=== PATIENT | male | born 1965 | race African-American/Black ===

== ENCOUNTER 2016-10-27 22:33 | Inpatient (IN) | payer SELFPAY ==
[~2016-10-27] VITALS: Ht 182.9 cm; Wt 99.8 kg
[2016-10-27] MEDS ORDERED: VERAPAMIL SR 180 MG TABLET.ER. PO ONE (23:45)
[2016-10-27] MEDS ORDERED: LISINOPRIL 10 MG TABLET PO ONE (23:45)
[2016-10-28] VITALS (7 sets, daily range): BP systolic 137–203; BP diastolic 73–132
[2016-10-28 02:41] LABS: BASO # 0.1 x10^3/uL (0.0-0.2); BASO % 1 % (0-3); EOS % 2 % (0-3); HEMATOCRIT 46.4 % (39.0-53.0); LYMPH # 2.9 x10^3/uL (1.0-4.8); LYMPH % 35 % (24-48); MEAN CORPUSCULAR HEMOGLOBIN 28 pg (25-35); MEAN CORPUSCULAR HGB CONC 32 g/dL (31-37); MEAN CORPUSCULAR VOLUME 88 fL (79-100); MONO % 7 % (0-9); NEUT % 56 % (31-73); PLATELET COUNT 261 x10^3/uL (140-400); RED BLOOD COUNT 5.29 x10^6/uL (4.30-5.70); RED CELL DISTRIBUTION WIDTH 15.2 % (11.5-14.5); WHITE BLOOD COUNT 8.3 x10^3/uL (4.0-11.0)
[2016-10-28] MEDS ORDERED: MORPHINE SULFATE 2 MG/ML DISP.SYRIN. IV PRN (02:45)
[2016-10-28] MEDS ORDERED: ACETAMINOPHEN 325 MG TABLET. PO PRN ×2 (02:45→10:30)
[2016-10-28] MEDS ORDERED: ONDANSETRON PF 4 MG/2 ML VIAL. IV PRN ×2 (02:45→10:30)
[2016-10-28 02:59] LABS: CALCIUM 9.3 mg/dL (8.5-10.1); CREATININE 1.1 mg/dL (0.7-1.3); GFR 85.1; POTASSIUM 3.7 mmol/L (3.5-5.1)
[2016-10-28] MEDS ORDERED: METOPROLOL TARTRATE 5 MG/5 ML VIAL. IVP ONE ×3 (03:00)
[2016-10-28 03:05] LABS: ALBUMIN 3.9 g/dL (3.4-5.0); ALBUMIN/GLOBULIN RATIO 1.1 (1.0-1.7); TOTAL BILIRUBIN 0.3 mg/dL (0.2-1.0); TOTAL PROTEIN 7.3 g/dL (6.4-8.2)
[2016-10-28] MEDS ORDERED: cloNIDine HCL 0.1 MG TABLET PO ONE (05:30)
--- NOTE | 2016-10-28 05:46 | PHYS DOC ---
Past Medical History Past Medical History: Cancer, Hypertension Additional Past Medical Histor: PROSTATE CA Past Surgical History: Other Additional Past Surgical Histo: PROSTATE Alcohol Use: Rarely Drug Use: None Adult General Chief Complaint Chief Complaint: HYPERTENSION HPI HPI Patient is a 50 year old [f__sex] who presents with [] Review of Systems Review of Systems Constitutional: Denies fever or chills [] Eyes: Denies change in visual acuity, redness, or eye pain [] HENT: Denies nasal congestion or sore throat [] Respiratory: Denies cough or shortness of breath [] Cardiovascular: No additional information not addressed in HPI [] GI: Denies abdominal pain, nausea, vomiting, bloody stools or diarrhea [] : Denies dysuria or hematuria [] Musculoskeletal: Denies back pain or joint pain [] Integument: Denies rash or skin lesions [] Neurologic: Denies headache, focal weakness or sensory changes [] Endocrine: Denies polyuria or polydipsia [] Current Medications Current Medications Current Medications Medications (Trade) Dose Ordered Sig/Fabio Start Time Stop Time Status Last Admin Dose Admin Lisinopril (Prinivil) 10 mg 1X ONCE 10/27/16 23:45 10/27/16 23:46 DC 10/27/16 23:39 10 MG Verapamil HCl (Calan Sr) 180 mg ONCE ONCE 10/27/16 23:45 10/27/16 23:46 DC 10/27/16 23:40 180 MG Allergies Allergies Allergies Coded Allergies Type Severity Reaction Last Updated Verified No Known Drug Allergies 10/27/16 No Physical Exam Physical Exam Constitutional: Well developed, well nourished, no acute distress, non-toxic appearance. [] HENT: Normocephalic, atraumatic, bilateral external ears normal, oropharynx moist, no oral exudates, nose normal. [] Eyes: PERRLA, EOMI, conjunctiva normal, no discharge. [] Neck: Normal range of motion, no tenderness, supple, no stridor. [] Cardiovascular:Heart rate regular rhythm, no murmur [] Lungs & Thorax: Bilateral breath sounds clear to auscultation [] Abdomen: Bowel sounds normal, soft, no tenderness, no masses, no pulsatile masses. [] Skin: Warm, dry, no erythema, no rash. [] Back: No tenderness, no CVA tenderness. [] Extremities: No tenderness, no cyanosis, no clubbing, ROM intact, no edema. [] Neurologic: Alert and oriented X 3, normal motor function, normal sensory function, no focal deficits noted. [] Psychologic: Affect normal, judgement normal, mood normal. [] Current Patient Data Vital Signs Vital Signs Date Time Temp Pulse Resp B/P (MAP) Pulse Ox O2 Delivery O2 Flow Rate FiO2 10/27/16 23:40 71 201/119 10/27/16 23:22 98.2 20 95 Room Air 98.2 Lab Values Laboratory Tests Test 10/28/16 00:01 White Blood Count 8.3 x10^3/uL (4.0-11.0) Red Blood Count 5.29 x10^6/uL (4.30-5.70) Hemoglobin 15.0 g/dL (13.0-17.5) Hematocrit 46.4 % (39.0-53.0) Mean Corpuscular Volume 88 fL (79-100) Mean Corpuscular Hemoglobin 28 pg (25-35) Mean Corpuscular Hemoglobin Concent 32 g/dL (31-37) Red Cell Distribution Width 15.2 % (11.5-14.5) H Platelet Count 261 x10^3/uL (140-400) Neutrophils (%) (Auto) 56 % (31-73) Lymphocytes (%) (Auto) 35 % (24-48) Monocytes (%) (Auto) 7 % (0-9) Eosinophils (%) (Auto) 2 % (0-3) Basophils (%) (Auto) 1 % (0-3) Neutrophils # (Auto) 4.7 x10^3uL (1.8-7.7) Lymphocytes # (Auto) 2.9 x10^3/uL (1.0-4.8) Monocytes # (Auto) 0.6 x10^3/uL (0.0-1.1) Eosinophils # (Auto) 0.1 x10^3/uL (0.0-0.7) Basophils # (Auto) 0.1 x10^3/uL (0.0-0.2) Sodium Level 142 mmol/L (136-145) Potassium Level 3.7 mmol/L (3.5-5.1) Chloride Level 103 mmol/L (98-107) Carbon Dioxide Level 32 mmol/L (21-32) Anion Gap 7 (6-14) Blood Urea Nitrogen 10 mg/dL (8-26) Creatinine 1.1 mg/dL (0.7-1.3) Estimated GFR (Cockcroft-Gault) 85.1 BUN/Creatinine Ratio 9 (6-20) Glucose Level 79 mg/dL (70-99) Calcium Level 9.3 mg/dL (8.5-10.1) Total Bilirubin 0.3 mg/dL (0.2-1.0) Aspartate Amino Transferase (AST) 20 U/L (15-37) Alanine Aminotransferase (ALT) 36 U/L (16-63) Alkaline Phosphatase 85 U/L (46-116) Troponin I Quantitative < 0.017 ng/mL (0.000-0.055) QR-Rrt-P-Type Natriuretic Peptide 72 pg/mL (0-124) Total Protein 7.3 g/dL (6.4-8.2) Albumin 3.9 g/dL (3.4-5.0) Albumin/Globulin Ratio 1.1 (1.0-1.7) Laboratory Tests 10/28/16 00:01 Laboratory Tests 10/28/16 00:01 EKG EKG [] Radiology/Procedures Radiology/Procedures [] Course & Med Decision Making Course & Med Decision Making Pertinent Labs and Imaging studies reviewed. (See chart for details) [] Dragon Disclaimer Dragon Disclaimer This electronic medical record was generated, in whole or in part, using a voice recognition dictation system. Departure Departure Impression: Primary Impression: Severe hypertension Additional Impression: Headache Disposition: ADMITTED INPATIENT Admitting Physician: Other (reusch) Condition: STABLE Referrals: NO PCP (PCP) Problem Qualifiers ANYI FOOTE MD Oct 28, 2016 05:46
--- NOTE | 2016-10-28 08:06 | RAD ---
EXAM: Chest one view. HISTORY: Hypertension. COMPARISON: 05/25/2007. FINDINGS: A frontal view of the chest is obtained. There are no confluent infiltrates. There is no pneumothorax or pleural effusion. The heart is not enlarged. IMPRESSION: 1. No confluent infiltrates.
--- NOTE | 2016-10-28 10:10 | PDOC2 ---
ARNALDO MAE GUNNER MATE 10/28/16 1010: CARDIAC CONSULT DATE OF CONSULT Date of Consult DATE: 10/28/16 TIME: 10:09 REASON FOR CONSULT Reason for Consult: HTN REFERRING PHYSICIAN Referring Physician: Dr. Alejandra Saul SOURCE Source: Chart review, Patient HISTORY OF PRESENT ILLNESS HISTORY OF PRESENT ILLNESS 50 year old male with history of HTN who stopped meds about 1.5 years ago as he did not think they were working and had financial issues. BP was ~ 160 at home and has increased gradually in the last 2 weeks. Presented to ER with headache and SBP > 200. Given multiple oral meds with improvement. Has been started on ACEI and diuretic. No EKG for review. Reason for Visit: HTN PAST MEDICAL HISTORY Cardiovascular: HTN Renal/: Prostate Ca. (with previous surgery) PAST SURGICAL HISTORY Past Surgical History seem PM FAMILY HISTORY Family History: Hypertension SOCIAL HISTORY Smoke: <1 pack per day ALCOHOL: rare Drugs: Other (quit THC years ago) CURRENT MEDICATIONS CURRENT MEDICATIONS Current Medications Medications (Trade) Dose Ordered Sig/Fabio Route PRN Reason Start Time Stop Time Status Last Admin Dose Admin Verapamil HCl (Calan Sr) 180 mg ONCE ONCE PO 10/27/16 23:45 10/27/16 23:46 DC 10/27/16 23:40 Lisinopril (Prinivil) 10 mg 1X ONCE PO 10/27/16 23:45 10/27/16 23:46 DC 10/27/16 23:39 Metoprolol Tartrate (Lopressor) 5 mg 1X ONCE IVP 10/28/16 03:00 10/28/16 03:01 DC 10/28/16 02:53 Metoprolol Tartrate (Lopressor) 5 mg 1X ONCE IVP 10/28/16 03:00 10/28/16 03:01 DC 10/28/16 03:05 Metoprolol Tartrate (Lopressor) 5 mg 1X ONCE IVP 10/28/16 03:00 10/28/16 03:01 DC 10/28/16 03:25 Clonidine HCl (Catapres) 0.1 mg 1X ONCE PO 10/28/16 05:30 10/28/16 05:31 DC 10/28/16 05:08 ALLERGIES ALLERGIES: Coded Allergies: No Known Drug Allergies (Unverified , 10/27/16) ROS Review of System 14 point review with pertinent positives in HPI PHYSICAL EXAM General: Alert, Oriented X3, Cooperative, No acute distress HEENT: Atraumatic, PERRLA Lungs: Clear to auscultation Heart: Regular rate, Normal S1, Normal S2, No murmurs Abdomen: Normal bowel sounds, Soft Extremities: No edema, Normal pulses Skin: No rashes Neuro: Normal speech Psych/Mental Status: Mental status NL, Mood NL MUSCULOSKELETAL: No deformity VITALS VITALS Vital Signs Date Time Temp Pulse Resp B/P (MAP) Pulse Ox O2 Delivery O2 Flow Rate FiO2 10/28/16 08:00 Room Air 10/28/16 07:46 97.3 58 18 137/73 (94) 94 97.3 LABS Lab: Laboratory Tests Test 10/28/16 00:01 White Blood Count 8.3 x10^3/uL (4.0-11.0) Red Blood Count 5.29 x10^6/uL (4.30-5.70) Hemoglobin 15.0 g/dL (13.0-17.5) Hematocrit 46.4 % (39.0-53.0) Mean Corpuscular Volume 88 fL (79-100) Mean Corpuscular Hemoglobin 28 pg (25-35) Mean Corpuscular Hemoglobin Concent 32 g/dL (31-37) Red Cell Distribution Width 15.2 % (11.5-14.5) Platelet Count 261 x10^3/uL (140-400) Neutrophils (%) (Auto) 56 % (31-73) Lymphocytes (%) (Auto) 35 % (24-48) Monocytes (%) (Auto) 7 % (0-9) Eosinophils (%) (Auto) 2 % (0-3) Basophils (%) (Auto) 1 % (0-3) Neutrophils # (Auto) 4.7 x10^3uL (1.8-7.7) Lymphocytes # (Auto) 2.9 x10^3/uL (1.0-4.8) Monocytes # (Auto) 0.6 x10^3/uL (0.0-1.1) Eosinophils # (Auto) 0.1 x10^3/uL (0.0-0.7) Basophils # (Auto) 0.1 x10^3/uL (0.0-0.2) Sodium Level 142 mmol/L (136-145) Potassium Level 3.7 mmol/L (3.5-5.1) Chloride Level 103 mmol/L (98-107) Carbon Dioxide Level 32 mmol/L (21-32) Anion Gap 7 (6-14) Blood Urea Nitrogen 10 mg/dL (8-26) Creatinine 1.1 mg/dL (0.7-1.3) Estimated GFR (Cockcroft-Gault) 85.1 BUN/Creatinine Ratio 9 (6-20) Glucose Level 79 mg/dL (70-99) Calcium Level 9.3 mg/dL (8.5-10.1) Total Bilirubin 0.3 mg/dL (0.2-1.0) Aspartate Amino Transf (AST/SGOT) 20 U/L (15-37) Alanine Aminotransferase (ALT/SGPT) 36 U/L (16-63) Alkaline Phosphatase 85 U/L (46-116) Troponin I Quantitative < 0.017 ng/mL (0.000-0.055) VL-Ejg-Z-Type Natriuretic Peptide 72 pg/mL (0-124) Total Protein 7.3 g/dL (6.4-8.2) Albumin 3.9 g/dL (3.4-5.0) Albumin/Globulin Ratio 1.1 (1.0-1.7) IMAGES IMAGES CXR - no acute process EKG EKG none for review ASSESSMENT/PLAN ASSESSMENT/PLAN 1. malignant HTN stopped meds 1.5 yrs ago due to financial issues has been restarted on oral meds pt concerned about meds - add CCB echo to evaluate for DD consult to SS for referral to reduced fee clinic 2. tobacco abuse smoking cessation advised Problems: BRANDON OROPEZA MD 10/28/16 2008: CARDIAC CONSULT ALLERGIES ALLERGIES: Coded Allergies: No Known Drug Allergies (Unverified , 10/27/16) ASSESSMENT/PLAN ASSESSMENT/PLAN Pt. seen and examined. Agree with above PREMIUM REPRESENTATIVE note. 50 y.o male with uncontrolled HTN. Doing better after BP control. Normal echo and cardiac exam. Ok to DC tomorrow if BP better controlled. Problems: ARNALDO MAE APRN Oct 28, 2016 10:10 BRANDON OROPEZA MD Oct 28, 2016 20:08
[2016-10-28] MEDS ORDERED: HYDROcodone/APAP 5/325MG 1 TAB TABLET PO PRN (10:30)
[2016-10-28] MEDS ORDERED: ALBUTEROL SULFATE 2.5 MG/3 ML NEBU. NEB PRN (10:30)
--- NOTE | 2016-10-28 10:36 | PDOC1 ---
History and Physical Current Problem List Problem List Problems Medical Problems: (1) Headache Status: Acute (2) Severe hypertension Status: Acute Current Medications Current Medications Current Medications Medications (Trade) Dose Ordered Sig/Fabio Start Time Stop Time Status Last Admin Dose Admin Acetaminophen (Tylenol) 325 mg PRN Q6HRS PRN 10/28/16 10:30 Acetaminophen/ Hydrocodone Bitart (Lortab 5/325) 1 tab PRN Q6HRS PRN 10/28/16 10:30 Albuterol Sulfate (Ventolin Neb Soln) 2.5 mg PRN Q4HRS PRN 10/28/16 10:30 Clonidine HCl (Catapres) 0.1 mg 1X ONCE 10/28/16 05:30 10/28/16 05:31 DC 10/28/16 05:08 0.1 MG Hydralazine HCl (Apresoline) 10 mg PRN Q4HRS PRN 10/28/16 10:30 Hydrochlorothiazide (Hydrodiuril) 25 mg DAILY 10/28/16 10:45 Lisinopril (Prinivil) 10 mg 1X ONCE 10/27/16 23:45 10/27/16 23:46 DC 10/27/16 23:39 10 MG Metoprolol Tartrate (Lopressor) 5 mg 1X ONCE 10/28/16 03:00 10/28/16 03:01 DC 10/28/16 03:25 5 MG Morphine Sulfate 2 mg PRN Q2HR PRN 10/28/16 02:45 10/29/16 02:44 Ondansetron HCl (Zofran) 4 mg PRN Q8HRS PRN 10/28/16 10:30 Verapamil HCl (Calan Sr) 180 mg ONCE ONCE 10/27/16 23:45 10/27/16 23:46 DC 10/27/16 23:40 180 MG Allergies Allergies Allergies Coded Allergies Type Severity Reaction Last Updated Verified No Known Drug Allergies 10/27/16 No ROS Review of System CONSTITUTIONAL: No fever or chills EYES: No recent changes SKIN: No rash or itching CARDIOVASCULAR: No chest pain, syncope, palpitations, or edema RESPIRATORY: No SOB or cough GASTROINTESTINAL: No nausea, vomiting or abdominal pain NEUROLOGICAL: No headaches or weakness ENDOCRINE: No cold or heat intolerance GENITOURINARY: No urgency or frequency of urination MUSCULOSKELETAL: No back pain or joint pain LYMPHATICS: No enlarged lymph nodes PSYCHIATRIC: No anxiety or depression Physical Exam Physical Exam GEN.: No apparent distress. Alert and oriented. HEENT: Head is normocephalic, atraumatic NECK: Supple. LUNGS: Clear to auscultation. HEART: RRR, S1, S2 present. Peripheral pulses intact ABDOMEN: Soft, nontender. Positive bowel sounds. EXTREMITIES: Without any cyanosis. NEUROLOGIC: Normal speech, normal tone PSYCHIATRIC: Normal affect, normal mood. SKIN: No ulcerations Vitals Vitals Vital Signs Date Time Temp Pulse Resp B/P (MAP) Pulse Ox O2 Delivery O2 Flow Rate FiO2 10/28/16 08:00 Room Air 10/28/16 07:46 97.3 58 18 137/73 (94) 94 97.3 Labs Labs Laboratory Tests Test 10/28/16 00:01 White Blood Count 8.3 x10^3/uL (4.0-11.0) Red Blood Count 5.29 x10^6/uL (4.30-5.70) Hemoglobin 15.0 g/dL (13.0-17.5) Hematocrit 46.4 % (39.0-53.0) Mean Corpuscular Volume 88 fL (79-100) Mean Corpuscular Hemoglobin 28 pg (25-35) Mean Corpuscular Hemoglobin Concent 32 g/dL (31-37) Red Cell Distribution Width 15.2 % (11.5-14.5) Platelet Count 261 x10^3/uL (140-400) Neutrophils (%) (Auto) 56 % (31-73) Lymphocytes (%) (Auto) 35 % (24-48) Monocytes (%) (Auto) 7 % (0-9) Eosinophils (%) (Auto) 2 % (0-3) Basophils (%) (Auto) 1 % (0-3) Neutrophils # (Auto) 4.7 x10^3uL (1.8-7.7) Lymphocytes # (Auto) 2.9 x10^3/uL (1.0-4.8) Monocytes # (Auto) 0.6 x10^3/uL (0.0-1.1) Eosinophils # (Auto) 0.1 x10^3/uL (0.0-0.7) Basophils # (Auto) 0.1 x10^3/uL (0.0-0.2) Sodium Level 142 mmol/L (136-145) Potassium Level 3.7 mmol/L (3.5-5.1) Chloride Level 103 mmol/L (98-107) Carbon Dioxide Level 32 mmol/L (21-32) Anion Gap 7 (6-14) Blood Urea Nitrogen 10 mg/dL (8-26) Creatinine 1.1 mg/dL (0.7-1.3) Estimated GFR (Cockcroft-Gault) 85.1 BUN/Creatinine Ratio 9 (6-20) Glucose Level 79 mg/dL (70-99) Calcium Level 9.3 mg/dL (8.5-10.1) Total Bilirubin 0.3 mg/dL (0.2-1.0) Aspartate Amino Transf (AST/SGOT) 20 U/L (15-37) Alanine Aminotransferase (ALT/SGPT) 36 U/L (16-63) Alkaline Phosphatase 85 U/L (46-116) Troponin I Quantitative < 0.017 ng/mL (0.000-0.055) QK-Ivh-T-Type Natriuretic Peptide 72 pg/mL (0-124) Total Protein 7.3 g/dL (6.4-8.2) Albumin 3.9 g/dL (3.4-5.0) Albumin/Globulin Ratio 1.1 (1.0-1.7) Laboratory Tests Test 10/28/16 00:01 White Blood Count 8.3 x10^3/uL (4.0-11.0) Red Blood Count 5.29 x10^6/uL (4.30-5.70) Hemoglobin 15.0 g/dL (13.0-17.5) Hematocrit 46.4 % (39.0-53.0) Mean Corpuscular Volume 88 fL (79-100) Mean Corpuscular Hemoglobin 28 pg (25-35) Mean Corpuscular Hemoglobin Concent 32 g/dL (31-37) Red Cell Distribution Width 15.2 % (11.5-14.5) Platelet Count 261 x10^3/uL (140-400) Neutrophils (%) (Auto) 56 % (31-73) Lymphocytes (%) (Auto) 35 % (24-48) Monocytes (%) (Auto) 7 % (0-9) Eosinophils (%) (Auto) 2 % (0-3) Basophils (%) (Auto) 1 % (0-3) Neutrophils # (Auto) 4.7 x10^3uL (1.8-7.7) Lymphocytes # (Auto) 2.9 x10^3/uL (1.0-4.8) Monocytes # (Auto) 0.6 x10^3/uL (0.0-1.1) Eosinophils # (Auto) 0.1 x10^3/uL (0.0-0.7) Basophils # (Auto) 0.1 x10^3/uL (0.0-0.2) Sodium Level 142 mmol/L (136-145) Potassium Level 3.7 mmol/L (3.5-5.1) Chloride Level 103 mmol/L (98-107) Carbon Dioxide Level 32 mmol/L (21-32) Anion Gap 7 (6-14) Blood Urea Nitrogen 10 mg/dL (8-26) Creatinine 1.1 mg/dL (0.7-1.3) Estimated GFR (Cockcroft-Gault) 85.1 BUN/Creatinine Ratio 9 (6-20) Glucose Level 79 mg/dL (70-99) Calcium Level 9.3 mg/dL (8.5-10.1) Total Bilirubin 0.3 mg/dL (0.2-1.0) Aspartate Amino Transf (AST/SGOT) 20 U/L (15-37) Alanine Aminotransferase (ALT/SGPT) 36 U/L (16-63) Alkaline Phosphatase 85 U/L (46-116) Troponin I Quantitative < 0.017 ng/mL (0.000-0.055) XZ-Anr-S-Type Natriuretic Peptide 72 pg/mL (0-124) Total Protein 7.3 g/dL (6.4-8.2) Albumin 3.9 g/dL (3.4-5.0) Albumin/Globulin Ratio 1.1 (1.0-1.7) VTE Prophylaxis Ordered VTE Prophylaxis Devices: No VTE Pharmacological Prophylaxi: No VIKTORIA MILLER MD Oct 28, 2016 10:36
[2016-10-28] MEDS: LISINOPRIL 20 MG TABLET PO SCH (11:27)
[2016-10-28] MEDS: hydroCHLOROthiazide 25 MG TABLET PO SCH (11:27)
[2016-10-28] MEDS: amLODIPine BESYLATE 10 MG TABLET PO SCH (11:27)
--- NOTE | 2016-10-28 16:09 | CARD ---
APPROVED REPORT EXAM: Two-dimensional and M-mode echocardiogram with Doppler and color Doppler. Other Information Quality : GoodHR: 63bpm Rhythm : NSR INDICATION Hypertension/HCVD Neck tightness 2D DIMENSIONS RVDd2.8 (2.9-3.5cm)IVSd1.5 (0.7-1.1cm) Aortic Root(2D)3.5 (2.0-3.7cm)LVDd4.3 (3.9-5.9cm) PWd1.4 (0.7-1.1cm) Aortic Valve AoV Peak Olvin.109.4cm/sAoV VTI24.6cm AO Peak GR.4.8mmHgLVOT Peak Olvin.108.4cm/s AO Mean GR.3mmHg Mitral Valve MV E Bvhyedhr91.3cm/sMV E Peak Gr.3mmHg MV DECEL [id number] A Sxdyudxz60.8cm/s MV E Mean Gr.1mmHgE/A Ratio1.9 MV A [id number] Pulmonary Valve PV Peak Ktzryznc87.3cm/s Tricuspid Valve TR P. Nceqwpea400ea/sTR Peak Gr.25mmHg Pulmonary Vein S1 Nlkeyfpx99.7cm/sD2 Xsjhnbfr15.2cm/s PVa [id number] LEFT VENTRICLE The left ventricle is normal size. There is mild concentric left ventricular hypertrophy. The left ve ntricular systolic function is normal and the ejection fraction is within normal range. The Ejection Fraction is 55-60%. There is normal LV segmental wall motion. The left ventricular diastolic function and filling is normal for age. RIGHT VENTRICLE The right ventricle is normal size. The right ventricular systolic function is normal. ATRIA The left atrium size is normal. The right atrium size is normal. The interatrial septum is intact wit h no evidence for an atrial septal defect or patent foramen ovale as noted on 2-D or Doppler imaging. AORTIC VALVE The aortic valve is mildly thickened. The aortic valve is trileaflet. Doppler and Color Flow revealed no significant aortic regurgitation. There is no significant aortic valvular stenosis. MITRAL VALVE The mitral valve leaflets are mildly thickened. There is no evidence of mitral valve prolapse. There is no mitral valve stenosis. Doppler and Color Flow revealed trace mitral regurgitation. TRICUSPID VALVE Doppler and Color Flow revealed trace tricuspid regurgitation. The pulmonary artery systolic pressure is estimated at 28 mmHg. There is no pulmonary hypertension. PULMONIC VALVE Doppler and Color Flow revealed no pulmonic valvular regurgitation. There is no pulmonic valvular tigist nosis. GREAT VESSELS The aortic root is normal in size. The ascending aorta is mildly dilated. The IVC is normal in size a nd collapses >50% with inspiration. PERICARDIAL EFFUSION There is no evidence of significant pericardial effusion. Critical Notification Critical Value: No <Conclusion> There is mild concentric left ventricular hypertrophy. The left ventricular systolic function is normal and the ejection fraction is within normal range. The Ejection Fraction is 55-60%. There is normal LV segmental wall motion.
[2016-10-28] MEDS: hydrALAZINE 20 MG/ML VIAL. IVP PRN ×2 (16:21→21:24)
--- NOTE | 2016-10-28 19:15 | HP ---
ADMIT DATE: 10/28/2016 CHIEF COMPLAINT: Headaches. HISTORY OF PRESENT ILLNESS: A 50-year-old male patient with prior history of hypertension, not taking medication about nearly 2 years due to financial issues. The patient was on hydrochlorothiazide in the past; however, due to financial issues, he could not take any medication so far. The patient presented to the hospital with headache, which is intractable in nature. Denies any chest pain, palpitations or blurring vision. At the time of his arrival to the ER, his blood pressure systolic more than 201/119. I was requiring several IV medications to control his blood pressures such as clonidine, metoprolol, lisinopril and verapamil. This morning, his blood pressure is still high. I was requiring other oral medications such as hydrochlorothiazide and lisinopril. PAST MEDICAL HISTORY: Hypertension and prostate cancer. PAST SURGICAL HISTORY: None. FAMILY HISTORY: Hypertension. SOCIAL HISTORY: Smoking less than 1 pack a day. Occasionally takes alcohol. ALLERGIES: NKDA. REVIEW OF SYSTEMS: Please see my electronic H and P. PHYSICAL EXAMINATION: Please see my electronic H and P. MEDICATIONS: Reviewed and reconciled. Please see MRAD. LABORATORY DATA: CBC within normal limits. Chemistry within normal limits. IMAGING STUDIES: 1. EKG not able to review. 2. Echocardiogram pending. ASSESSMENT AND PLAN: 1. Hypertensive urgency, present on admission. 2. Nicotine use. PLAN: 1. The patient has been placed on several IV medications. Currently, we are changing to oral. He has been placed on hydrochlorothiazide, lisinopril and amlodipine. I will continue to monitor his response. He had a stress echocardiogram today. Cardiology has been consulted. Two sets of troponins have been ordered. 2. herbarium worker consult for possible financial help. 3. CBC, BMP in a.m. VIKTORIA MILLER MD DR: JASPREET/josie JOB#: [id number] / [id number]
[2016-10-29 03:37] VITALS: BP 148/104
[2016-10-29 03:51] LABS: BASO % 1 % (0-3); EOS % 1 % (0-3); HEMATOCRIT 46.2 % (39.0-53.0); HEMOGLOBIN 15.3 g/dL (13.0-17.5); LYMPH # 2.5 x10^3/uL (1.0-4.8); LYMPH % 30 % (24-48); MEAN CORPUSCULAR HEMOGLOBIN 28 pg (25-35); MEAN CORPUSCULAR HGB CONC 33 g/dL (31-37); MEAN CORPUSCULAR VOLUME 85 fL (79-100); MONO % 7 % (0-9); NEUT % 62 % (31-73); PLATELET COUNT 250 x10^3/uL (140-400); RED BLOOD COUNT 5.41 x10^6/uL (4.30-5.70); RED CELL DISTRIBUTION WIDTH 15.1 % (11.5-14.5); WHITE BLOOD COUNT 8.3 x10^3/uL (4.0-11.0)
[2016-10-29 03:57] LABS: CALCIUM 8.9 mg/dL (8.5-10.1); CREATININE 1.1 mg/dL (0.7-1.3); GFR 84.7; POTASSIUM 3.4 mmol/L (3.5-5.1)
--- NOTE | 2016-10-29 06:26 | ACF ---
Admission Forms Criteria HEADACHES Clinical Indications for Admission to Inpatient Care (Place 'X' for any and all applicable criteria): Admission is indicated for ANY ONE of the following(1)(2)(3)(4): [X]I. Inpatient admission required rather than observational care (Also use Headaches: Observation Care as appropriate) because of ANY ONE of the following: [ ]a) Severe pain requiring acute inpatient management [ ]b) Altered mental status that is severe or persistent [ ]c) Vomiting or dehydration that is severe or persistent [ ]d) New-onset focal neurologic deficit that is severe or persistent [X]e) Hypertension requiring inpatient treatment [ ]f) Severe (new) neurologic findings requiring inpatient care as indicated by ANY ONE of following(9)(10): [ ]1) Papilledema [ ]2) Cerebral edema [ ]3) Mass effect on CT scan [ ]4) Cerebral bleeding, ischemia, or vasospasm(16) [ ]5) Hydrocephalus(17) [ ]6) Uncontrolled seizures [ ]g) IV infusion of anticoagulation, platelet inhibitors vasoactive, or antiarrhythmic medication. [ ]h) Cerebral bleeding, hydrocephalus, or vasospasm monitoring (16) [ ]i) Increased intracranial pressure or cerebral edema monitoring (17) [ ]j) Other condition, treatment or monitoring requiring inpatient admission [ ]II. Unruptured but threatening aneurysm or vascular malformation [ ]III. Venous sinus thrombosis [ ]IV. Increased intracranial pressure [ ]V. Cerebral spinal fluid leak with decreased intracranial pressure [ ]. Medication-overuse headache that has failed all outpatient management options [ ]VII. Vasculitis (eg, giant cell (temporal) arteritis, central nervous system vasculitis) requiring IV corticosteroids, IV antithrombotic therapy, or inpatient monitoring (eg, visual symptoms or findings, other ischemic manifestations)[A](10)(11) Extended stay beyond goal length of stay may be needed for (27): [ ]a) Intractable migraine [ ]b) Subarachnoid or intracranial hemorrhage [ ]c) Malignant hypertension [ ]d) Detoxification from drug withdrawal in medication-overuse headache (29) The original [facility] content created by Ashely Andrew has been revised. The portions of the content which have been revised are identified through the use of italic text or in bold, and Ashely Andrew has neither reviewed nor approved the modified material.All other unmodified content is copyright [facility]. Please see references footnoted in the original [facility] edition 2016 Admission Criteria Met?: Yes KATHARINE DAVIS Oct 29, 2016 06:25
[2016-10-29 07:51] VITALS: BP 155/93
[2016-10-29] MEDS ORDERED: POTASSIUM CHLORIDE 20 MEQ TABLET.ER. PO ONE (08:30)
[2016-10-29] MEDS: LISINOPRIL 20 MG TABLET PO SCH (08:37)
[2016-10-29] MEDS: amLODIPine BESYLATE 10 MG TABLET PO SCH (08:37)
[2016-10-29] MEDS: hydroCHLOROthiazide 25 MG TABLET PO SCH (08:37)
--- NOTE | 2016-10-29 09:36 | EKG ---
[facility] [address] [place] [address] Test Date: 2016-10-28 Test Time: 01:19:35 Pat Name: OMAYRA MÉNDEZ Department: Room: Gender: M Watch Parts Inspector: : 1965 Requested By: ANYI FOOTE Order Number: [id number] Reading MD: Aleksandar Zuniga Measurements Intervals [place] Rate: 63 P: 33 [place]: 162 QRS: 10 QRSD: 82 T: -5 QT: 384 QTc: 396 Interpretive Statements SINUS RHYTHM NON-SPECIFIC ST/T CHANGES Electronically Signed On 10-29-2016 9:35:58 CDT by Aleksandar Zuniga
[2016-10-29 11:00] VITALS: BP 144/96
[2016-10-29] MEDS ORDERED: AMLO10TA4 PO (12:35)
[2016-10-29] MEDS ORDERED: LISI-334 PO (12:35)
[2016-10-29] MEDS ORDERED: HYDR25TA9 PO (12:35)
[2016-10-31 15:14] LABS: POTASSIUM ISTAT 3.4 mmol/L (3.5-5.0)
--- NOTE | 2016-10-31 22:58 | DS ---
DATE OF DISCHARGE: 10/29/2016 DISCHARGE DIAGNOSES: 1. Hypertensive urgency, present on admission. 2. Nicotine use. BRIEF HOSPITAL COURSE: A 51-year-old male patient admitted to the hospital for hypertensive urgency. The patient had a diagnosis of hypertension in the past; however, he was not taking medications, presented with a headache. His admission blood pressure systolic more than 200. He was requiring several IV blood pressure medications initially. Later, his medications have been changed to oral. Currently, he is on amlodipine, hydrochlorothiazide and lisinopril. The patient has been advised to maintain home logs and go to the family doctor in a couple of weeks and readjust the medications. He had an echocardiogram, showed an LV ejection fraction of 50% to 55% with LVH changes. DISCHARGE PHYSICAL EXAMINATION: GENERAL: Alert, oriented x 3. HEART: S1, S2 present. CHEST: Anterior chest clear. ABDOMEN: Soft, nontender, no organomegaly. EXTREMITIES: No edema. DISCHARGE DISPOSITION: Home. DISCHARGE CONDITION: Stable. DISCHARGE FOLLOWUP: With primary care doctor in 2-4 weeks. Total time spent for discharge is 31 minutes for patient education, counseling and coordination of care. All new scripts provided to the patient. DISCHARGE DIET: Renal. PROGNOSIS: Good. VIKTORIA MILLER MD DR: JASPREET/nts JOB#: [id number] / [id number]
== END 2016-10-29 13:15 | disposition home or self-care (01) | DRG 305 ==
LOC: ER 22:33 → 2 NORTH 10-28 02:35
PROVIDERS: ADMIT Internal Medicine Hematology & Oncology; ATTEND Internal Medicine Hematology & Oncology
DX: I16.0 Hypertensive urgency (principal); F17.210 Nicotine dependence, cigarettes, uncomplicated; I10 Essential (primary) hypertension; Z59.9 Problem related to housing and economic circumstances, unspecified; Z82.49 Family history of ischemic heart disease and other diseases of the circulatory system; Z85.46 Personal history of malignant neoplasm of prostate
CPT/HCPCS: 36415; 71010; 80047; 80048; 80053; 83880; 84484; 85027; 93005; 93306; 94250; 94760; 96374; 96375; J0360; J3490; 99285-25

== ENCOUNTER 2018-10-20 06:58 | Emergency (ER) | payer SELFPAY ==
[~2018-10-20] VITALS: Ht 182.9 cm; Wt 102.5 kg
[~2018-10-20 06:58] MED LIST: AMLO10TA4 PO; HYDR-2145 PO; LISI-334 PO
[2018-10-20] MEDS ORDERED: cloNIDine HCL 0.1 MG TABLET PO ONE (07:30)
--- NOTE | 2018-10-20 07:31 | PHYS DOC ---
Past Medical History Past Medical History: Cancer, Hypertension Additional Past Medical Histor: PROSTATE CA Past Surgical History: Other Additional Past Surgical Histo: PROSTATE Smoking: Cigarettes Alcohol Use: Rarely Drug Use: None Adult General Chief Complaint Chief Complaint: HEADACHE HPI HPI Patient is a 52-year-old male with a past history of hypertension who presents to the emergency department for evaluation. He states this morning when walking up the stairs, he became dizzy, almost as a sense of lightheadedness, like he was going to pass out. He denies any symptoms of rotation or tinnitus. He DENIES a headache, even though this is listed as his chief complaint. He denies any pain at this time. He did not have any pain in his chest, or palpitations. He has not had any nausea, or vomiting. He does report some generalized blurred vision, as if he is having difficulty focusing at distance, that he states he normally wears glasses for distance vision anyway, which he does not have with him. Patient states that he had been on blood pressure medication in the past, but had been off of his blood pressure medication for quite some time. He states he saw a new physician at the [facility] about 10 days ago and was restarted on blood pressure medication. The patient states he has had similar symptoms in the past, to that which he is currently experiencing, when his blood pressure is elevated. Blood pressure is noted to be in the 230s systolic upon arrival in the ED. Review of Systems Review of Systems Constitutional: Denies fever or chills [] Eyes: Denies redness, or eye pain [] HENT: Denies nasal congestion or sore throat [] Respiratory: Denies cough or shortness of breath [] Cardiovascular: The patient denies any shortness of breath, chest pain, palpitations, or orthopnea [] GI: Denies abdominal pain, nausea, vomiting, bloody stools or diarrhea [] : Denies dysuria or hematuria [] Musculoskeletal: Denies back pain or joint pain [] Integument: Denies rash or skin lesions [] Neurologic: Denies headache, focal weakness or sensory changes [] Endocrine: Denies polyuria or polydipsia [] All other systems were reviewed and found to be within normal limits, except as documented in this note. Current Medications Current Medications Current Medications Medications (Trade) Dose Ordered Sig/Fabio Start Time Stop Time Status Last Admin Dose Admin Amlodipine Besylate (Norvasc) 10 mg 1X ONCE 10/20/18 10:30 10/20/18 10:32 DC Clonidine HCl (Catapres) 0.1 mg 1X ONCE 10/20/18 07:30 10/20/18 07:31 DC 10/20/18 07:52 0.1 MG Hydralazine HCl (Apresoline Inj) 10 mg 1X ONCE 10/20/18 09:15 10/20/18 09:16 DC 10/20/18 09:39 10 MG Hydrochlorothiazide (Hydrodiuril) 25 mg 1X ONCE 10/20/18 10:30 10/20/18 10:32 DC Lisinopril (Prinivil) 20 mg 1X ONCE 10/20/18 10:30 10/20/18 10:32 DC Allergies Allergies Allergies Coded Allergies Type Severity Reaction Last Updated Verified No Known Drug Allergies 10/27/16 No Physical Exam Physical Exam PHYSICAL EXAM: CONSTITUTIONAL: Well developed, well nourished HEAD: normocephalic, atraumatic EENT: PERRL, EOMI. Conjunctivae normal color, sclerae non-icteric; moist mucous membranes. NECK: Supple, non-tender; no meningismus. LUNGS: Lungs CTA, breathing even and unlabored. Normal air movement. HEART: Regular rate and rhythm, no murmur CHEST: No deformity; non-tender ABDOMEN: The abdomen is soft, and non-tender, no masses or bruits. EXTREM: Normal ROM; no deformity, no calf tenderness. Normal pulses palpable in all extremities. There is no pedal edema. SKIN: No rash; no diaphoresis NEURO: Alert; normal speech and cognition; CN's grossly intact; strength grossly intact without focal deficit. Visual wylie are intact by confrontation. Fuqivw-liye-pmywoq and heel cruz testing is normal. Sensation is normal. Speech is deliberate, but this is baseline for the patient (according to the patient himself, and a family member who accompanies him), there is no aphasia or dysarthria. The patient's NIH stroke scale is 0 BACK: No CVA TTP. Current Patient Data Vital Signs Vital Signs Date Time Temp Pulse Resp B/P (MAP) Pulse Ox O2 Delivery O2 Flow Rate FiO2 10/20/18 10:00 72 16 97 6/4/19 09:39 188/119 10/20/18 07:15 97.9 Room Air 97.9 Lab Values Laboratory Tests Test 10/20/18 07:30 White Blood Count 7.5 x10^3/uL (4.0-11.0) Red Blood Count 5.68 x10^6/uL (4.30-5.70) Hemoglobin 16.4 g/dL (13.0-17.5) Hematocrit 48.1 % (39.0-53.0) Mean Corpuscular Volume 85 fL (79-100) Mean Corpuscular Hemoglobin 29 pg (25-35) Mean Corpuscular Hemoglobin Concent 34 g/dL (31-37) Red Cell Distribution Width 14.7 % (11.5-14.5) H Platelet Count 262 x10^3/uL (140-400) Neutrophils (%) (Auto) 53 % (31-73) Lymphocytes (%) (Auto) 36 % (24-48) Monocytes (%) (Auto) 8 % (0-9) Eosinophils (%) (Auto) 2 % (0-3) Basophils (%) (Auto) 1 % (0-3) Neutrophils # (Auto) 4.0 x10^3uL (1.8-7.7) Lymphocytes # (Auto) 2.7 x10^3/uL (1.0-4.8) Monocytes # (Auto) 0.6 x10^3/uL (0.0-1.1) Eosinophils # (Auto) 0.1 x10^3/uL (0.0-0.7) Basophils # (Auto) 0.1 x10^3/uL (0.0-0.2) Sodium Level 141 mmol/L (136-145) Potassium Level 3.3 mmol/L (3.5-5.1) L Chloride Level 102 mmol/L (98-107) Carbon Dioxide Level 30 mmol/L (21-32) Anion Gap 9 (6-14) Blood Urea Nitrogen 10 mg/dL (8-26) Creatinine 1.1 mg/dL (0.7-1.3) Estimated GFR (Cockcroft-Gault) 84.4 BUN/Creatinine Ratio 9 (6-20) Glucose Level 104 mg/dL (70-99) H Calcium Level 8.8 mg/dL (8.5-10.1) Magnesium Level 1.9 mg/dL (1.8-2.4) Total Bilirubin 0.5 mg/dL (0.2-1.0) Aspartate Amino Transferase (AST) 18 U/L (15-37) Alanine Aminotransferase (ALT) 33 U/L (16-63) Alkaline Phosphatase 90 U/L (46-116) Troponin I Quantitative < 0.017 ng/mL (0.000-0.055) Total Protein 8.0 g/dL (6.4-8.2) Albumin 4.0 g/dL (3.4-5.0) Albumin/Globulin Ratio 1.0 (1.0-1.7) Laboratory Tests 10/20/18 07:30 Laboratory Tests 10/20/18 07:30 EKG EKG Normal sinus rhythm at a rate of 70 beats for minute, left axis deviation, normal intervals, nonspecific ST/T changes without acute ischemic changes noted[] Radiology/Procedures Radiology/Procedures [PROCEDURE: CT HEAD WO CONTRAST CT HEAD WO CONTRAST Indication: Dizziness. Hypertension. Exposure: One or more of the following individualized dose reduction techniques were utilized for this examination: 1. Automated exposure control 2. Adjustment of the mA and/or kV according to patient size 3. Use of iterative reconstruction technique. Technique: Standard imaging without intravenous contrast. No evidence of acute intracranial hemorrhage, mass effect, midline shift or abnormal extra-axial fluid collection. Ventricles and sulci are symmetric. Harden-white matter distinction is intact. Orbits appear symmetric. No large scalp hematoma. Partially visualized sinuses are clear. No evidence of acute skull abnormality. IMPRESSION: No evidence of acute intracranial hemorrhage.] Course & Med Decision Making Course & Med Decision Making 10:40 AM: The patient's condition remained stable and he is feeling significantly better at this time. His current blood pressure is 174/110. He is asymptomatic, his dizziness has resolved. He denies any complaints or pain at this time. He states he did not take his blood pressure medication this morning, but reports that he has otherwise been compliant with his medication. I did discuss the importance of monitoring his blood pressure at home, and keeping a blood pressure log, something the patient does not regularly do. I discussed importance of close PCP follow-up, and return precautions in detail. Pertinent Labs and Imaging studies reviewed. (See chart for details) [] Dragon Disclaimer Dragon Disclaimer This electronic medical record was generated, in whole or in part, using a voice recognition dictation system. Departure Departure Impression: Primary Impression: Hypertension Additional Impression: Dizziness Disposition: 01 HOME, SELF-CARE Condition: STABLE Patient Instructions: Dizziness, Hypertension Additional Instructions: Follow-up with your primary care provider for further evaluation and treatment. Checked her blood pressure twice daily, and keep a log of the recording, and bring these values to your primary care provider on follow-up. Mature to take a blood pressure medication as prescribed, every day without fail. Problem Qualifiers NOLBERTO SPEARS MD Oct 20, 2018 07:31
[2018-10-20 07:43] LABS: BASO # 0.1 x10^3/uL (0.0-0.2); BASO % 1 % (0-3); EOS # 0.1 x10^3/uL (0.0-0.7); EOS % 2 % (0-3); HEMATOCRIT 48.1 % (39.0-53.0); HEMOGLOBIN 16.4 g/dL (13.0-17.5); LYMPH # 2.7 x10^3/uL (1.0-4.8); LYMPH % 36 % (24-48); MEAN CORPUSCULAR HEMOGLOBIN 29 pg (25-35); MEAN CORPUSCULAR HGB CONC 34 g/dL (31-37); MEAN CORPUSCULAR VOLUME 85 fL (79-100); MONO # 0.6 x10^3/uL (0.0-1.1); MONO % 8 % (0-9); NEUT % 53 % (31-73); PLATELET COUNT 262 x10^3/uL (140-400); RED BLOOD COUNT 5.68 x10^6/uL (4.30-5.70); RED CELL DISTRIBUTION WIDTH 14.7 % (11.5-14.5); WHITE BLOOD COUNT 7.5 x10^3/uL (4.0-11.0)
[2018-10-20 07:51] LABS: CALCIUM 8.8 mg/dL (8.5-10.1); CREATININE 1.1 mg/dL (0.7-1.3); GFR 84.4; POTASSIUM 3.3 mmol/L (3.5-5.1)
[2018-10-20 07:57] LABS: MAGNESIUM 1.9 mg/dL (1.8-2.4); TOTAL BILIRUBIN 0.5 mg/dL (0.2-1.0)
--- NOTE | 2018-10-20 08:38 | RAD ---
CT HEAD WO CONTRAST Indication: Dizziness. Hypertension. Exposure: One or more of the following individualized dose reduction techniques were utilized for this examination: 1. Automated exposure control 2. Adjustment of the mA and/or kV according to patient size 3. Use of iterative reconstruction technique. Technique: Standard imaging without intravenous contrast. No evidence of acute intracranial hemorrhage, mass effect, midline shift or abnormal extra-axial fluid collection. Ventricles and sulci are symmetric. Harden-white matter distinction is intact. Orbits appear symmetric. No large scalp hematoma. Partially visualized sinuses are clear. No evidence of acute skull abnormality. IMPRESSION: No evidence of acute intracranial hemorrhage. Electronically signed by: Griffin Garcia MD (10/20/2018 8:35 AM) [id number]
[2018-10-20] MEDS ORDERED: hydrALAZINE 20 MG/ML VIAL. IVP ONE (09:15)
--- NOTE | 2018-10-20 09:49 | EKG ---
[facility] [address] [place] [address] Test Date: 2018-10-20 Test Time: 07:55:43 Pat Name: OMAYRA MÉNDEZ Department: Room: Gender: M Plumber Maintenance: : 1965 Requested By: NOLBERTO SPEARS Order Number: [id number] Reading MD: Measurements Intervals [place] Rate: 70 P: 24 CA: 156 QRS: -21 QRSD: 82 T: 8 QT: 374 QTc: 407 Interpretive Statements SINUS RHYTHM LEFTWARD AXIS QRS(T) CONTOUR ABNORMALITY CONSIDER ANTEROLATERAL MYOCARDIAL DAMAGE POSSIBLY ABNORMAL ECG RI6.01 No previous ECG available for comparison
[2018-10-20] MEDS ORDERED: LISINOPRIL 10 MG TABLET PO ONE (10:30)
[2018-10-20] MEDS ORDERED: amLODIPine BESYLATE 5 MG TABLET PO ONE (10:30)
[2018-10-20] MEDS ORDERED: hydroCHLOROthiazide 25 MG TABLET PO ONE (10:30)
[2018-10-20 11:13] VITALS: BP 160/105
[2018-10-21] MEDS ORDERED: CLON0.1T PO (14:59)
[2018-10-21] MEDS ORDERED: AMLO10TA4 PO (14:59)
[2018-10-21] MEDS ORDERED: HYDR25TA10 PO (14:59)
[2018-10-21] MEDS ORDERED: LISI-334 PO (14:59)
== END 2018-10-20 11:19 | disposition home or self-care (01) ==
LOC: ER 06:58
DX: I10 Essential (primary) hypertension (principal); R42 Dizziness and giddiness; F17.210 Nicotine dependence, cigarettes, uncomplicated
CPT/HCPCS: 36415; 70450; 80053; 83735; 84484; 85025; 93005; 96374; 99285; J0360

== ENCOUNTER 2018-10-21 13:03 | Emergency (ER) | payer SELFPAY ==
[~2018-10-21] VITALS: Ht 182.9 cm; Wt 102.5 kg
--- NOTE | 2018-10-21 13:35 | PHYS DOC ---
Past Medical History Past Medical History: Hypertension Additional Past Medical Histor: prostate cancer Past Surgical History: Other Additional Past Surgical Histo: prostatectomy Alcohol Use: Occasionally Drug Use: None Adult General Chief Complaint Chief Complaint: HYPERTENSION HPI HPI Patient is a 52-year-old male who is familiar to me from an ER visit yesterday, when the patient was seen for hypertension. He states that he checked his blood pressure yesterday evening, and found to be in the 170s. It wasn't 150s this morning at home. He does admit to a mild intermittent headache, and complains of a mild headache at this time, but he has had similar headaches in the past and this headache is not unique, singular, severe, or "the worst headache of his life". He denies any other pain. He denies any chest pain shortness of breath. He presents to the emergency department today for reevaluation of his blood pressure. Additionally, the patient is giving different information to me now than he gives me yesterday. Yesterday, he informed me that he was seen at [facility] 10 days ago and restarted his blood pressure medications via refills. However, today he states that he was unable to be seen 10 days ago, although he started 10 days ago taking old, leftover blood pressure medication that he had at home. He states that he took his last dose of lisinopril and HCTZ yesterday, and took his last dose of Norvasc today, and currently has no other blood pressure medication. He did go to [facility] to try and get seen, but was just sitting there waiting was not able to be seen. Thus he presents to the emergency department. He denies any other complaints or symptoms at this time. Review of Systems Review of Systems Constitutional: Denies fever or chills [] Eyes: Denies change in visual acuity, redness, or eye pain [] HENT: Denies nasal congestion or sore throat [] Respiratory: Denies cough or shortness of breath [] Cardiovascular:The patient denies any shortness of breath, chest pain, palpitations, or orthopnea [] GI: Denies abdominal pain, nausea, vomiting, bloody stools or diarrhea [] : Denies dysuria or hematuria [] Musculoskeletal: Denies back pain or joint pain [] Integument: Denies rash or skin lesions [] Neurologic: Denies focal weakness or sensory changes [] Endocrine: Denies polyuria or polydipsia [] All other systems were reviewed and found to be within normal limits, except as documented in this note. Current Medications Current Medications Current Medications Medications (Trade) Dose Ordered Sig/Fabio Start Time Stop Time Status Last Admin Dose Admin Clonidine HCl (Catapres) 0.1 mg 1X ONCE 10/21/18 14:00 10/21/18 14:01 DC 10/21/18 13:57 0.1 MG Hydrochlorothiazide (Microzide) 25 mg 1X ONCE 10/21/18 14:00 10/21/18 14:01 DC 10/21/18 13:58 25 MG Lisinopril (Prinivil) 10 mg 1X ONCE 10/21/18 14:00 10/21/18 14:01 DC 10/21/18 13:58 10 MG Allergies Allergies Allergies Coded Allergies Type Severity Reaction Last Updated Verified No Known Drug Allergies 10/27/16 No Physical Exam Physical Exam PHYSICAL EXAM: CONSTITUTIONAL: Well developed, well nourished HEAD: normocephalic, atraumatic EENT: PERRL, EOMI. Conjunctivae normal color, sclerae non-icteric; moist mucous membranes. NECK: Supple, non-tender; no meningismus. LUNGS: Lungs CTA, breathing even and unlabored. Normal air movement. HEART: Regular rate and rhythm, no murmur CHEST: No deformity; non-tender ABDOMEN: The abdomen is soft, and non-tender, no masses or bruits. EXTREM: Normal ROM; no deformity, no calf tenderness. Normal pulses palpable in all extremities. There is no pedal edema. SKIN: No rash; no diaphoresis NEURO: Alert; normal speech and cognition; CN's grossly intact; strength grossly intact without focal deficit. BACK: No CVA TTP. Current Patient Data Vital Signs Vital Signs Date Time Temp Pulse Resp B/P (MAP) Pulse Ox O2 Delivery O2 Flow Rate FiO2 10/21/18 13:58 80 214/96 10/21/18 13:22 97.9 16 98 Room Air 97.9 EKG EKG [Normal sinus rhythm with a normal rate, normal axis, normal intervals, there are no acute ischemic ST/T changes.] Radiology/Procedures Radiology/Procedures [] Course & Med Decision Making Course & Med Decision Making Pertinent Labs and Imaging studies reviewed from yesterday. (See chart for details) []2:55 PM: The patient's condition remained stable and he remains asymptomatic this time. I discussed importance of close outpatient follow-up for the blood pressure medication management and adjustment. The patient will be restarted on all of his medication as well as given a when necessary prescription for clonidine to use in severe hypertension, With SBP above 180. This was discussed with the patient. We discussed return precautions. Dragon Disclaimer Dragon Disclaimer This electronic medical record was generated, in whole or in part, using a voice recognition dictation system. Departure Departure Impression: Primary Impression: HTN (hypertension) Disposition: HOME, SELF-CARE Condition: STABLE Referrals: JANAY BLANCO MD Patient Instructions: Hypertension Scripts Clonidine Hcl (CLONIDINE HCL) 0.1 Mg Tablet 1 TAB PO INSTRUCTED, #30 TAB 0 Refills Take no more frequently than every 8 hours, and only take if systolic blood pressure is above 180 mmHg. Prov: NOLBERTO SPEARS MD 10/21/18 Amlodipine Besylate (NORVASC) 10 Mg Tablet 10 MG PO DAILY, #30 TAB Prov: NOLBERTO SPEARS MD 10/21/18 Hydrochlorothiazide (Hydrochlorothiazide) 25 Mg Tablet 25 MG PO DAILY, #30 TAB Prov: NOLBERTO SPEARS MD 10/21/18 Lisinopril (LISINOPRIL) 20 Mg Tablet 1 TAB PO DAILY, #30 TAB 0 Refills Prov: NOLBERTO SPEARS MD 10/21/18 NOLBERTO SPEARS MD Oct 21, 2018 13:35
[2018-10-21] MEDS ORDERED: cloNIDine HCL 0.1 MG TABLET PO ONE (14:00)
[2018-10-21] MEDS ORDERED: hydroCHLOROthiazide 12.5 MG CAPSULE PO ONE (14:00)
[2018-10-21] MEDS ORDERED: LISINOPRIL 10 MG TABLET PO ONE (14:00)
--- NOTE | 2018-10-21 14:06 | EKG ---
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
[2018-10-21] MEDS ORDERED: HYDR25TA10 PO (14:59)
[2018-10-21] MEDS ORDERED: AMLO10TA4 PO (14:59)
[2018-10-21] MEDS ORDERED: CLON0.1T PO (14:59)
[2018-10-21] MEDS ORDERED: LISI-334 PO (14:59)
[2018-10-21 15:00] VITALS: BP 196/102
== END 2018-10-21 15:10 | disposition home or self-care (01) ==
LOC: ER 13:03
DX: I10 Essential (primary) hypertension (principal); R51 Headache
CPT/HCPCS: 93005; 99284

== ENCOUNTER 2019-01-04 11:38 | Emergency (ER) | payer SELFPAY ==
[~2019-01-04] VITALS: Ht 182.9 cm; Wt 95.3 kg
[~2019-01-04 11:38] MED LIST changes: +CLON0.1T PO; +HYDR25TA10 PO
[2019-01-04] MEDS ORDERED: LIDOCAINE 1%/EPI 1:100,000 20 ML VIAL. INJ ONE (12:15)
--- NOTE | 2019-01-04 12:17 | PHYS DOC ---
Past Medical History Past Medical History: Hypertension Additional Past Medical Histor: prostate cancer Past Surgical History: Other Additional Past Surgical Histo: prostatectomy Alcohol Use: Occasionally Drug Use: None Adult General Chief Complaint Chief Complaint: LACERATION/AVULSION HPI HPI Patient is a 53 year old male who was working outside and bit over and caught his right eyebrow against a crowbar. This happened right before arrival around 11 AM. He has a laceration to the right eyebrow. Rates his pain as 5 out of 10 in severity and sharp. Review of Systems Review of Systems Constitutional: Denies fever or chills [] Eyes: Denies change in visual acuity, redness, or eye pain [] HENT: Denies nasal congestion or sore throat [] Respiratory: Denies cough or shortness of breath [] Cardiovascular: No additional information not addressed in HPI [] GI: Denies abdominal pain, nausea, vomiting, bloody stools or diarrhea [] : Denies dysuria or hematuria [] Musculoskeletal: Denies back pain or joint pain [] Integument: Reports laceration to R eyebrow. Neurologic: Denies headache, focal weakness or sensory changes [] Endocrine: Denies polyuria or polydipsia [] Complete systems were reviewed and found to be within normal limits, except as documented in this note. Current Medications Current Medications Current Medications Medications (Trade) Dose Ordered Sig/Fabio Start Time Stop Time Status Last Admin Dose Admin Lidocaine/ Epinephrine (LIDOCAINE 1%-EPI 1:100,000 Multi-Dose) 20 ml 1X ONCE 01/04/19 12:15 01/04/19 12:16 DC 01/04/19 12:30 20 ML Allergies Allergies Allergies Coded Allergies Type Severity Reaction Last Updated Verified No Known Drug Allergies 10/27/16 No Physical Exam Physical Exam Constitutional: Well developed, well nourished, no acute distress, non-toxic appearance. [] HENT: Normocephalic, atraumatic, bilateral external ears normal, oropharynx moist, no oral exudates, nose normal. [] Eyes: PERRLA, EOMI, conjunctiva normal, no discharge. [] Neck: Normal range of motion, no tenderness, supple, no stridor. [] Cardiovascular:Heart rate regular rhythm, no murmur [] Lungs & Thorax: Bilateral breath sounds clear to auscultation [] Abdomen: Bowel sounds normal, soft, no tenderness, no masses, no pulsatile masses. [] Skin: Laceration to right eyebrow. Back: No tenderness, no CVA tenderness. [] Extremities: No tenderness, no cyanosis, no clubbing, ROM intact, no edema. [] Neurologic: Alert and oriented X 3, normal motor function, normal sensory function, no focal deficits noted. [] Psychologic: Affect normal, judgement normal, mood normal. [] Current Patient Data Vital Signs Vital Signs Date Time Temp Pulse Resp B/P (MAP) Pulse Ox O2 Delivery O2 Flow Rate FiO2 01/04/19 12:05 98.2 90 16 173/106 (128) 96 Room Air 98.2 EKG EKG [] Radiology/Procedures Radiology/Procedures Indication: Eyebrow laceration Procedure: The patient was placed in the appropriate position and anesthesia around the 1% lidocaine with epi. The area was then cleansed with 100 mL of normal saline. The laceration was closed with 6 4-0 ethilon. The wound area was then dressed with neosporin. Total repaired wound length: 1.5 cm. The patient tolerated the procedure [TOLERATED]. Complications: None Course & Med Decision Making Course & Med Decision Making Pertinent Labs and Imaging studies reviewed. (See chart for details) Will suture wound. Also ordered tetanus. Dragon Disclaimer Dragon Disclaimer This electronic medical record was generated, in whole or in part, using a voice recognition dictation system. Departure Departure Impression: Primary Impression: Laceration Disposition: 01 HOME, SELF-CARE Condition: STABLE Referrals: NO PCP (PCP) Patient Instructions: Facial Laceration, Laceration Care, Adult Additional Instructions: Thank you for visiting [facility]. We appreciate you trusting us with your care. If any additional problems come up don't hesitate to return to visit us. Please follow up with your primary care provider so they can plan clif tional care if needed and know about the problem that you had. If symptoms worsen come back to the Emergency Department. Any concerning symptoms that start such as chest pain, shortness of air, weakness or numbness on one side of the body, running high fevers or any other concerning symptoms return to the ER. Please have sutures removed in 7 days. Keep wound clean. If signs of infection come back to ER. SAMUEL SUTTON APRN Jan 04, 2019 12:17
[2019-01-04] MEDS ORDERED: NEOMY/BACITR/POLYMYXIN OINT PACKET. TP ONE (13:30)
[2019-01-04] MEDS ORDERED: DIPHTH,PERTUSS(ACELL),TET TOX 0.5 ML DISP.SYRIN. VAX IM ONE ×2 (13:30→13:45)
[2019-01-04 13:50] VITALS: BP 167/97
== END 2019-01-04 13:55 | disposition home or self-care (01) ==
LOC: ER 11:38
DX: S01.111A Laceration without foreign body of right eyelid and periocular area, initial encounter (principal); I10 Essential (primary) hypertension; W23.0XXA Caught, crushed, jammed, or pinched between moving objects, initial encounter; Y93.89 Activity, other specified; Y92.69 Other specified industrial and construction area as the place of occurrence of the external cause; Y99.0 Civilian activity done for income or pay
CPT/HCPCS: 12011; 90471; 90715; 99283; J3490

== ENCOUNTER 2019-01-11 13:44 | Emergency (ER) | payer SELFPAY ==
[~2019-01-11] VITALS: Ht 182.9 cm; Wt 95.3 kg
[2019-01-11 14:14] VITALS: BP 174/101
--- NOTE | 2019-01-11 14:23 | PHYS DOC ---
Past Medical History Past Medical History: Hypertension Additional Past Medical Histor: prostate cancer Past Surgical History: Other Additional Past Surgical Histo: prostatectomy, hernia repair Additional Information: 8 cigarettes daily Alcohol Use: Occasionally Drug Use: None Adult General Chief Complaint Chief Complaint: SUTURE/STAPLE REMOVAL [facility] HPI Patient is a 53 year old AA male who presents to the ER with need for suture removal. Pt states he was here one week ago for a laceration repair. He reports having Tdap during that visit. He denies any pain or complaints at this time. ROS He denies any fever, redness, warmth, or drainage from the site. Pt denies any fever, headache, or vision changes. All other ROS is neg unless otherwise noted in HPI. Review of Systems Review of Systems See Above Allergies Allergies Allergies Coded Allergies Type Severity Reaction Last Updated Verified No Known Drug Allergies 10/27/16 No Physical Exam Physical Exam See Above Constitutional: Well developed, well nourished, no acute distress, non-toxic appearance. [] HENT: Normocephalic, atraumatic, bilateral external ears normal, nose normal. [] Eyes: PERRLA, EOMI, conjunctiva normal, no discharge. [] Neck: Normal range of motion, no stridor. [] Cardiovascular:Heart rate regular rhythm Lungs & Thorax: Respirations even and unlabored, no retractions, no respiratory distress Skin: Warm, dry, no erythema, no rash; healed laceration noted to right eye brow, edges are well approximated, no redness, warmth, or drainage noted. [] Extremities: No cyanosis, ROM intact, no edema. [] Neurologic: Alert and oriented X 3, no focal deficits noted. [] Psychologic: Affect normal, judgement normal, mood normal. [] Current Patient Data Vital Signs Vital Signs Date Time Temp Pulse Resp B/P (MAP) Pulse Ox O2 Delivery O2 Flow Rate FiO2 01/11/19 14:14 174/101 (125) 01/11/19 14:07 98.1 77 16 97 Room Air 98.1 EKG EKG [] Radiology/Procedures Radiology/Procedures The wound was explored by myself and Amparo LOYA, Only 5 sutures were present. They were removed by myself. A small area in the middle of the laceration was not completely healed, a steri strip was applied by the nurse. [] Course & Med Decision Making Course & Med Decision Making Pertinent Labs and Imaging studies reviewed. (See chart for details) [] Dragon Disclaimer Dragon Disclaimer This electronic medical record was generated, in whole or in part, using a voice recognition dictation system. Departure Departure Impression: Primary Impression: Encounter for removal of sutures Disposition: 01 HOME, SELF-CARE Condition: STABLE Referrals: NO PCP (PCP) Patient Instructions: Suture Removal-Brief TJ PERALES FLASK FITTER Jan 11, 2019 14:22
== END 2019-01-11 14:34 | disposition home or self-care (01) ==
LOC: ER 13:44
DX: S01.111D Laceration without foreign body of right eyelid and periocular area, subsequent encounter (principal); F17.210 Nicotine dependence, cigarettes, uncomplicated; I10 Essential (primary) hypertension; X58.XXXD Exposure to other specified factors, subsequent encounter
CPT/HCPCS: 99282